=== PATIENT | female | born 1940 | race Caucasian/White ===

== ENCOUNTER 2019-05-14 15:00 | Emergency (ER) | payer MEDICARE ==
--- NOTE | 2019-05-14 15:58 | NUR ---
NOT IN LOBBY X 1 [id number]
== END 2019-05-14 21:55 | disposition left against medical advice (07) ==
LOC: ED 21:10
DX: J00 Acute nasopharyngitis [common cold] (principal); Z53.21 Procedure and treatment not carried out due to patient leaving prior to being seen by health care provider